=== PATIENT | male | born 1990 | race Caucasian/White ===

== ENCOUNTER 2018-02-26 09:26 | Inpatient (IN) | payer OTHER ==
[~2018-02-26] VITALS: Ht 195.6 cm; Wt 96.1 kg
[~2018-02-26 09:26] MED LIST: GUAI100S6 PO; OSEL75 PO; ZOFR4TAB3 SL
[2018-02-26] MEDS ORDERED: FLUT50SP EACH NARE (10:26)
[2018-02-26] MEDS ORDERED: CETI10 (10:26)
[2018-02-26] MEDS ORDERED: ceFAZolin 1,000 MG/NS 100 ML IV SCH ×2 (10:30)
[2018-02-26] MEDS ORDERED: SODIUM CHLORID 0.9% 500 ML IV PRN (10:30)
[2018-02-26] MEDS ORDERED: CHLORHEXIDINE GLUCONATE 2 % 1 PACK (2 CLOTHS) TOPICAL PRN (10:30)
[2018-02-26] MEDS ORDERED: LACTATED RINGER'S 1000 ML IV PRN (10:30)
[2018-02-26] MEDS ORDERED: ALVIMOPAN 12 MG CAPSULE - On Call PO SCH (10:30)
[2018-02-26] MEDS ORDERED: POVIDONE IODINE 5% (ANTISEPSIS KIT) 4 APPLICATIONS EACH NARE PRN (10:30)
[2018-02-26] MEDS ORDERED: METOPROLOL TARTRATE 25 MG TAB PO PRN (10:30)
[2018-02-26] MEDS ORDERED: METRONIDAZOLE 500 MG/100 ML ISONTONIC SOLN IV SCH (10:30)
[2018-02-26] MEDS ORDERED: DEXT 5%-NACL 0.9% 1000 ML INJ 1,000 ML IV SCH (11:00)
[2018-02-26 11:08] LABS: BASOPHIL # 0.1 TH/MM3 (0-0.2); BASOPHIL % 1.6 % (0.0-2.0); EOSINOPHIL # 0.2 TH/MM3 (0-0.4); EOSINOPHIL % 3.8 % (0.0-4.0); HEMATOCRIT 44.9 % (39.0-51.0); HEMOGLOBIN 15.7 GM/DL (13.0-17.0); LYMPH % 29.8 % (9.0-44.0); LYMPHOCYTE # 1.6 TH/MM3 (1.0-4.8); MEAN CELL VOLUME 77.3 FL (80.0-100.0); MEAN PLATELET VOLUME 8.5 FL (7.0-11.0); MONO % 9.4 % (0.0-8.0); MONOCYTE # 0.5 TH/MM3 (0-0.9); NEUT % 55.4 % (16.0-70.0); PLATELET COUNT 265 TH/MM3 (150-450); RED BLOOD COUNT 5.81 MIL/MM3 (4.50-5.90); RED CELL DISTRIBUTION WIDTH 17.8 % (11.6-17.2); WHITE BLOOD COUNT 5.4 TH/MM3 (4.0-11.0)
--- NOTE | 2018-02-26 11:14 | PD.HP.UP ---
H&P Update Note The Pre-Admit History and Physical Examination regarding the above named patient was reviewed (including, but not limited to, vital signs, heart, lungs, co-morbid conditions), and upon re-examination it is noted that: the patient's condition has not significantly changed since the last examination. Daryn Francis MD Feb 26, 2018 11:14
[2018-02-26] MEDS ORDERED: ACETAMINOPHEN 1000 MG/100 ML 100 ML IV ONE (11:30)
[2018-02-26] MEDS ORDERED: SODIUM CHLORIDE 0.9% 10 ML VIAL IV ONE (12:00)
[2018-02-26] MEDS ORDERED: PROPOFOL 200 MG/20 ML AMP IV ONE (12:00)
[2018-02-26] MEDS ORDERED: ONDANSETRON HCL 4 MG/2 ML VIAL IV ONE (12:00)
[2018-02-26] MEDS ORDERED: NEOSTIGMINE 5 MG/5 ML SYRINGE IV PUSH ONE (12:00)
[2018-02-26] MEDS ORDERED: ROCURONIUM INJ 50 MG/5 ML SYRINGE IV PUSH ONE (12:00)
[2018-02-26] MEDS ORDERED: DEXAMETHASONE SOD PHOS 4 MG/ML VIAL IV ONE (12:00)
[2018-02-26] MEDS ORDERED: LIDOCAINE HCL 1% PF 5 ML SYRINGE OTHER ONE (12:00)
[2018-02-26] MEDS ORDERED: GLYCOPYRROLATE 1 MG/5 ML SYRINGE IV PUSH ONE (12:00)
[2018-02-26] MEDS ORDERED: BUPIVACAINE LIPOSOME PF 1.3% 20 ML VIAL ONE (13:20)
[2018-02-26] MEDS ORDERED: MIDAZOLAM HCL 2 MG/2 ML VIAL ONE (13:59)
[2018-02-26] MEDS ORDERED: ENALAPRILAT 1.25 MG/ML VIAL IV PUSH PRN (14:00)
[2018-02-26] MEDS ORDERED: ACETAMINOPHEN/HYDROcodone 325 MG/5 MG TAB PO PRN (14:00)
[2018-02-26] MEDS ORDERED: ACETAMINOPHEN 325 MG TAB PO PRN (14:00)
[2018-02-26] MEDS ORDERED: POTASSIUM CHLOR 40 MEQ PREMIX 100 ML IV-CENTRAL PRN (14:00)
[2018-02-26] MEDS ORDERED: NALOXONE HCL 0.4 MG/ML AMP IV PUSH PRN (14:00)
[2018-02-26] MEDS ORDERED: POTASSIUM CHLOR 20 MEQ PREMIX 100 ML IV PRN (14:00)
[2018-02-26] MEDS ORDERED: ENALAPRILAT 2.5 MG/2 ML VIAL IV PUSH PRN (14:00)
[2018-02-26] MEDS ORDERED: Post-op Orders (for Pharmacy) XX ONE (14:00)
[2018-02-26] MEDS: D5-NS + KCL 20 MEQ INJ 1,000 ML IV SCH ×2 (14:00→22:22)
[2018-02-26] MEDS ORDERED: BENZOCAINE 6 MG/MENTHOL 10 MG LOZENGE BUCCAL PRN (14:00)
[2018-02-26] MEDS ORDERED: ONDANSETRON HCL 4 MG/2 ML VIAL IV PUSH PRN (14:00)
[2018-02-26] MEDS ORDERED: *morphine SULFATE 8 MG/ML PERIprocedure ONLY ONE (14:12)
[2018-02-26] MEDS ORDERED: *PROMETHAZINE 25 MG/ML VIAL PERIprocedural use ONLY ONE (14:16)
[2018-02-26] MEDS ORDERED: DO NOT ADM ANY ANTICOAGULANT DRUGS PRN (14:45)
[2018-02-26] MEDS: MORPHINE SULFATE 30 MG/30 ML PCA IV SCH (15:51)
[2018-02-26] MEDS ORDERED: *MEPERIDINE 25 MG INJ VIAL PERIprocedural Use ONLY ONE (18:07)
[2018-02-26 20:00] VITALS: BP 152/84; PULSE 83; PULSE 87; RESP 16; TEMP 98.3; O2SAT 99
[2018-02-26] MEDS: FLUTICASONE PROPIONATE 50 MCG/ACT 16 GM NASAL SPRAY EACH NARE SCH (21:00)
[2018-02-26] MEDS: PCA - TOTAL MG MORPHINE DELIVERED PER SHIFT SCH (22:00)
[2018-02-26] MEDS: metroNIDAZOLE 500 MG INJ 100 ML IV SCH (22:15)
[2018-02-26] MEDS: METOCLOPRAMIDE HCL 10 MG/2 ML VIAL IVS SCH (22:16)
[2018-02-26] MEDS: KETOROLAC TROMETHAMINE 30 MG/ML (IVP) VIAL IVP PRN (22:38)
[2018-02-27] VITALS (11 sets, daily range): BP systolic 128–146; BP diastolic 63–89; PULSE 20–100; RESP 16–20; TEMP 97.4–98.9; O2SAT 98–100
[2018-02-27] MEDS: D5-NS + KCL 20 MEQ INJ 1,000 ML IV SCH ×3 (01:26→17:36)
[2018-02-27 04:49] LABS: AUTOMATED NEUTROPHIL # 8.3 TH/MM3 (1.8-7.7); BASOPHIL % 0.1 % (0.0-2.0); HEMATOCRIT 39.7 % (39.0-51.0); HEMOGLOBIN 13.5 GM/DL (13.0-17.0); LYMPHOCYTE # 0.7 TH/MM3 (1.0-4.8); MEAN CELL VOLUME 78.2 FL (80.0-100.0); MEAN CORPUSCULAR HEMOGLOBIN 26.6 PG (27.0-34.0); MEAN PLATELET VOLUME 8.3 FL (7.0-11.0); MONO % 10.5 % (0.0-8.0); MONOCYTE # 1.1 TH/MM3 (0-0.9); NEUT % 82.4 % (16.0-70.0); PLATELET COUNT 265 TH/MM3 (150-450); RED BLOOD COUNT 5.07 MIL/MM3 (4.50-5.90); RED CELL DISTRIBUTION WIDTH 17.5 % (11.6-17.2); WHITE BLOOD COUNT 10.1 TH/MM3 (4.0-11.0)
[2018-02-27] MEDS: metroNIDAZOLE 500 MG INJ 100 ML IV SCH ×2 (05:02→13:00)
[2018-02-27] MEDS: KETOROLAC TROMETHAMINE 30 MG/ML (IVP) VIAL IVP PRN ×4 (05:02→23:55)
[2018-02-27] MEDS: PCA - TOTAL MG MORPHINE DELIVERED PER SHIFT SCH ×3 (05:05→21:14)
[2018-02-27 05:09] LABS: BICARBONATE 26.2 MEQ/L (21.0-32.0); CALCIUM 8.4 MG/DL (8.5-10.1); CREATININE 0.86 MG/DL (0.60-1.30)
[2018-02-27] MEDS: PANTOPRAZOLE SODIUM 40 MG VIAL IVP SCH (08:27)
[2018-02-27] MEDS: ALVIMOPAN 12 MG CAPSULE - Post-op dosing PO SCH ×2 (08:28→21:12)
[2018-02-27] MEDS: PANTOPRAZOLE SOD 40 MG DELAYED RELEASE TAB PO SCH (08:28)
[2018-02-27] MEDS: METOCLOPRAMIDE HCL 10 MG/2 ML VIAL IVS SCH ×2 (08:28→21:13)
[2018-02-27] MEDS: FLUTICASONE PROPIONATE 50 MCG/ACT 16 GM NASAL SPRAY EACH NARE SCH ×2 (08:29→21:00)
[2018-02-27] MEDS: CETIRIZINE HCL 10 MG TAB PO SCH (08:29)
[2018-02-27] MEDS: MORPHINE SULFATE 30 MG/30 ML PCA IV SCH ×2 (10:30→21:11)
[2018-02-27] MEDS ORDERED: ALVIMOPAN 12 MG CAPSULE PO SCH (21:00)
[2018-02-28] VITALS: BP 137/80; PULSE 75; RESP 18; TEMP 98; O2SAT 99
[2018-02-28 04:00] VITALS: BP 129/70; PULSE 78; RESP 18; TEMP 98.1; O2SAT 98
[2018-02-28] MEDS: D5-NS + KCL 20 MEQ INJ 1,000 ML IV SCH ×2 (05:53→17:53)
[2018-02-28] MEDS: PCA - TOTAL MG MORPHINE DELIVERED PER SHIFT SCH ×3 (05:53→22:00)
[2018-02-28 07:34] LABS: AUTOMATED NEUTROPHIL # 6.7 TH/MM3 (1.8-7.7); BASOPHIL % 0.5 % (0.0-2.0); EOSINOPHIL # 0.1 TH/MM3 (0-0.4); EOSINOPHIL % 0.7 % (0.0-4.0); HEMATOCRIT 37.2 % (39.0-51.0); HEMOGLOBIN 12.6 GM/DL (13.0-17.0); LYMPH % 16.7 % (9.0-44.0); LYMPHOCYTE # 1.6 TH/MM3 (1.0-4.8); MEAN CELL VOLUME 79.6 FL (80.0-100.0); MEAN CORPUSCULAR HEMOGLOBIN 27.1 PG (27.0-34.0); MEAN PLATELET VOLUME 8.8 FL (7.0-11.0); MONO % 10.5 % (0.0-8.0); NEUT % 71.6 % (16.0-70.0); PLATELET COUNT 199 TH/MM3 (150-450); RED BLOOD COUNT 4.67 MIL/MM3 (4.50-5.90); RED CELL DISTRIBUTION WIDTH 17.2 % (11.6-17.2); WHITE BLOOD COUNT 9.4 TH/MM3 (4.0-11.0)
[2018-02-28 08:00] VITALS: BP 149/79; PULSE 81; RESP 18; TEMP 98.6; O2SAT 99
[2018-02-28 08:02] LABS: BICARBONATE 25.6 MEQ/L (21.0-32.0); CALCIUM 8.4 MG/DL (8.5-10.1); CREATININE 0.81 MG/DL (0.60-1.30)
[2018-02-28] MEDS: FLUTICASONE PROPIONATE 50 MCG/ACT 16 GM NASAL SPRAY EACH NARE SCH ×2 (08:43→21:00)
[2018-02-28] MEDS: PANTOPRAZOLE SODIUM 40 MG VIAL IVP SCH (08:44)
[2018-02-28] MEDS: PANTOPRAZOLE SOD 40 MG DELAYED RELEASE TAB PO SCH (08:45)
[2018-02-28] MEDS: ALVIMOPAN 12 MG CAPSULE - Post-op dosing PO SCH ×2 (08:45→22:12)
[2018-02-28] MEDS: METOCLOPRAMIDE HCL 10 MG/2 ML VIAL IVS SCH (08:45)
[2018-02-28] MEDS: CETIRIZINE HCL 10 MG TAB PO SCH (08:46)
[2018-02-28 12:00] VITALS: BP 126/73; PULSE 77; RESP 18; TEMP 98.7; O2SAT 98
[2018-02-28] MEDS: KETOROLAC TROMETHAMINE 30 MG/ML (IVP) VIAL IVP PRN ×2 (12:49→22:16)
[2018-02-28] MEDS: MORPHINE SULFATE 30 MG/30 ML PCA IV SCH (13:47)
[2018-02-28 16:00] VITALS: BP 138/74; PULSE 70; RESP 18; TEMP 98.2; O2SAT 99
[2018-02-28] MEDS ORDERED: METOCLOPRAMIDE HCL 10 MG/2 ML VIAL IVS PRN (17:45)
--- NOTE | 2018-02-28 18:13 | HHI.PR ---
Subjective Remarks C/ R Surg POD # 2 afebrile, VSS UO good +BM Objective - Vital Signs Date Time Temp Pulse Resp B/P (MAP) Pulse Ox O2 Delivery O2 Flow Rate FiO2 02/28/18 16:00 98.2 70 18 138/74 (95) 99 02/27/18 21:37 21 02/27/18 10:34 Nasal Cannula 2.00 Result Diagram: 02/28/18 0534 02/28/18 0534 Objective Remarks PE alert Abd - soft, wound dry, min tympany A/P Assessment and Plan Imp: adv diet dc IVF PO meds dc plans Daryn Francis MD Feb 28, 2018 18:13
--- NOTE | 2018-02-28 18:58 | MP ---
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 PROCEDURE: Exploratory laparotomy with extended right hemicolectomy. POSTOPERATIVE DIAGNOSIS: Polypoid tumor of the transverse colon. SURGEON: Dr. Daryn Francsi. INDICATIONS: Dr. Antonio Naik. PROCEDURE IN DETAIL: The patient was placed in the supine position. After adequate general anesthesia, his legs were placed in universal stirrups and supported appropriately. The abdomen and perineum were then prepped with Betadine solution and draped in the usual sterile fashion. With Dr. Naik's assistance, the abdomen was opened through a midline incision. Exploration revealed no tattooing in the colon. With palpation, a tumor mass was located in the left side of the middle colic vessels. There appeared to be some serosal puckering and the tumor was very firm. No other tumors were palpated throughout the colon. There was some tortuosity in the rectosigmoid. Liver and gallbladder were normal. The stomach and duodenum were normal. Great vessels were of normal caliber and fairly soft. First, the right colon was mobilized medially by dividing along the white line of Toldt. The right ureter was identified and preserved. Dissection then proceeded up the right gutter, freeing the colon off the retroperitoneum, taking down the hepatic flexure into the lesser sac and taking the gastrocolic omentum off the colon. A point to the left of the middle colic vessels was chosen due to its tumor location and the bowel divided using the PORSHA stapling device. The middle colic vessels as well as the right colic and ileocolic vessels were then progressively clamped and tied, dividing the bowel and the terminal ileum with Bernardo clamps and the specimen removed. Bowel continuity was then restored by firing the PORSHA stapler across the antimesenteric ends of the bowel, closed the enterotomy with a TA 60 stapler. Mesenteric defect closed with a running Vicryl suture and a 3-0 Vicryl crotch suture was placed as well. Bowel returned to the abdominal cavity. The abdomen was irrigated copiously with normal saline. Adequate hemostasis achieved. The midline incision was closed anatomically in 1 layer using #1 PDS sutures to reapproximate the midline fascia. Exparel was injected into the sub rectus plane for a tap block prior to closing. The subcutaneous tissue was irrigated copiously and the skin closed with a row of subcuticular Vicryl sutures. Wound area was washed with normal saline and dried, sterile dressing of Telfa and gauze applied. The patient tolerated the procedure quite well and was brought to the recovery room in stable condition. Sponge and needle counts were correct at the end of the procedure. Daryn Francis MD AHR/SA , 06:40 PM , 06:57 PM
[2018-02-28 20:00] VITALS: BP 137/65; PULSE 71; RESP 19; TEMP 98.4; O2SAT 99
[2018-03-01] VITALS: BP 125/73; PULSE 76; RESP 19; TEMP 97.8; O2SAT 98
[2018-03-01 04:00] VITALS: BP 135/87; PULSE 80; RESP 20; TEMP 97.5; O2SAT 99
[2018-03-01] MEDS: PCA - TOTAL MG MORPHINE DELIVERED PER SHIFT SCH (05:37)
[2018-03-01] MEDS: D5-NS + KCL 20 MEQ INJ 1,000 ML IV SCH (06:40)
[2018-03-01 08:00] VITALS: BP 141/67; PULSE 77; RESP 16; TEMP 98.3; O2SAT 98
[2018-03-01] MEDS: PANTOPRAZOLE SODIUM 40 MG VIAL IVP SCH (08:21)
[2018-03-01] MEDS: FLUTICASONE PROPIONATE 50 MCG/ACT 16 GM NASAL SPRAY EACH NARE SCH ×2 (08:21→21:11)
[2018-03-01] MEDS: PANTOPRAZOLE SOD 40 MG DELAYED RELEASE TAB PO SCH (08:23)
[2018-03-01] MEDS: ALVIMOPAN 12 MG CAPSULE - Post-op dosing PO SCH ×2 (08:24→21:07)
[2018-03-01] MEDS: CETIRIZINE HCL 10 MG TAB PO SCH (08:25)
--- NOTE | 2018-03-01 11:31 | HHI.PR ---
Subjective Remarks POD#2 s/p ascending colectomy comfortable Objective Vital Signs Date Time Temp Pulse Resp B/P (MAP) Pulse Ox O2 Delivery O2 Flow Rate FiO2 03/01/18 08:00 98.3 77 16 141/67 (91) 98 03/01/18 05:37 18 03/01/18 04:00 97.5 80 20 135/87 (103) 99 03/01/18 00:00 97.8 76 19 125/73 (90) 98 02/28/18 22:00 17 02/28/18 20:00 98.4 71 19 137/65 (89) 99 02/28/18 16:00 98.2 70 18 138/74 (95) 99 02/28/18 12:00 98.7 77 18 126/73 (90) 98 I/O 02/28/18 02/28/18 02/28/18 03/01/18 03/01/18 03/01/18 07:00 15:00 23:00 07:00 15:00 23:00 Intake Total 1000 ml 800 ml 1500 ml Output Total 600 ml 900 ml 400 ml Balance 400 ml -100 ml 1100 ml Intake Oral 0 ml 800 ml 500 ml IV Total 1000 ml 1000 ml Output Urine Total 600 ml 900 ml 400 ml # Bowel Movements 0 1 0 Result Diagram: 02/28/18 0534 02/28/18 0534 Objective Remarks Abdomen soft, nondistended, tender Wound clean Assessment and Plan Assessment and Plan Advance diet D/C [employer] REPRESENT[employer]IVE, IVF Home soon Shila Brooks MD Mar 01, 2018 11:31
[2018-03-01] MEDS: ACETAMINOPHEN/HYDROcodone 325 MG/5 MG TAB PO PRN ×3 (11:54→21:31)
[2018-03-01 12:00] VITALS: BP 145/83; PULSE 82; RESP 18; TEMP 98.4; O2SAT 97
[2018-03-01 16:00] VITALS: BP 139/75; PULSE 70; RESP 17; TEMP 97.6; O2SAT 97
[2018-03-01 20:00] VITALS: BP 139/65; PULSE 63; RESP 20; TEMP 97.9; O2SAT 97
[2018-03-02] VITALS: BP 140/72; PULSE 68; RESP 20; TEMP 98.4; O2SAT 99
[2018-03-02 08:00] VITALS: BP 150/70; PULSE 88; RESP 17; TEMP 98; O2SAT 99
[2018-03-02] MEDS: PANTOPRAZOLE SODIUM 40 MG VIAL IVP SCH (08:15)
[2018-03-02] MEDS: FLUTICASONE PROPIONATE 50 MCG/ACT 16 GM NASAL SPRAY EACH NARE SCH (08:15)
[2018-03-02] MEDS: CETIRIZINE HCL 10 MG TAB PO SCH (08:16)
[2018-03-02] MEDS: PANTOPRAZOLE SOD 40 MG DELAYED RELEASE TAB PO SCH (08:16)
[2018-03-02] MEDS: ACETAMINOPHEN/HYDROcodone 325 MG/5 MG TAB PO PRN ×2 (08:16→13:21)
[2018-03-02] MEDS: ALVIMOPAN 12 MG CAPSULE - Post-op dosing PO SCH (08:16)
[2018-03-02 12:00] VITALS: BP 130/71; PULSE 65; RESP 17; TEMP 97.9; O2SAT 98
--- NOTE | 2018-03-02 12:37 | HHI.PR ---
Subjective Remarks POD#3 s/p ascending colectomy comfortable, wants to go home Objective Vital Signs Date Time Temp Pulse Resp B/P (MAP) Pulse Ox O2 Delivery O2 Flow Rate FiO2 03/02/18 08:00 98.0 88 17 150/70 (96) 99 03/02/18 00:00 98.4 68 20 140/72 (94) 99 03/01/18 20:00 97.9 63 20 139/65 (89) 97 03/01/18 16:00 97.6 70 17 139/75 (96) 97 I/O 03/01/18 03/01/18 03/01/18 03/02/18 03/02/18 03/02/18 07:00 15:00 23:00 07:00 15:00 23:00 Intake Total 1500 ml 1200 ml 480 ml Output Total 400 ml 925 ml Balance 1100 ml 1200 ml -445 ml Intake Oral 500 ml 1200 ml 480 ml IV Total 1000 ml Output Urine Total 400 ml 925 ml # Voids 3 # Bowel Movements 0 Result Diagram: 02/28/18 0534 02/28/18 0534 Objective Remarks Abdomen soft, nondistended, tender Wound clean Assessment and Plan Assessment and Plan Home today Followup with Dr. Francis 2 weeks Shila Brooks MD Mar 02, 2018 12:37
[2018-03-02] MEDS ORDERED: HYDR-3516 PO (12:54)
== END 2018-03-02 14:39 | disposition home or self-care (01) | DRG 331 ==
LOC: HSDI 09:26 → HCPC 18:41 → N07B 02-27 16:15
PROVIDERS: ADMIT Colon & Rectal Surgery; ATTEND Colon & Rectal Surgery
PROC: 0DTH0ZZ Resection of Cecum, Open Approach (ICD-10-PCS; 2018-02-26)
PROC: 0DBB0ZZ Excision of Ileum, Open Approach (ICD-10-PCS; 2018-02-26)
PROC: 0DTL0ZZ Resection of Transverse Colon, Open Approach (ICD-10-PCS; principal; 2018-02-26 12:00)
DX: C18.4 Malignant neoplasm of transverse colon (principal)
CPT/HCPCS: 80048; 85025; 86850; 86900; 86901; 88307; 88309; 94150; C9113; C9290; J0131; J0690; J1100; J1885; J2175; J2250; J2270; J2405; J2550; J2710; J2765; J3010; J3480; J7120